=== PATIENT | male | born 1955 | race Caucasian/White ===

== ENCOUNTER 2016-12-16 05:53 | Inpatient (IN) | payer BC, OTHER ==
[~2016-12-16] VITALS: Ht 172.7 cm; Wt 70.7 kg
[2016-12-16] MEDS ORDERED: ALBUTEROL SULF 2.5 MG/0.5ML(0.5%) NEB SOLN HHN STA (07:31)
[2016-12-16 07:36] LABS: Basophils # (auto) 0.1 uL; Basophils % (auto) 1.4 % (0.0-2.0); DEFINITIVE VIEW TRANSMISSION; Eosinophils # (auto) 0.3 uL; Eosinophils % (auto) 3.9 % (0.0-7.0); Hematocrit 51.9 % (41.0-53.0); Hemoglobin 17.2 g/dL (13.5-17.5); Lymphocytes # (auto) 1.4 uL; Lymphocytes % (auto) 21.3 % (10.0-50.0); Mean Corpuscular Hemoglobin 35.3 pg (28.0-32.0); Mean Corpuscular Hgb Conc. 33.2 g/dL (32.0-36.0); Mean Corpuscular Volume 106.2 fL (80.0-100.0); Mean Platelet Volume 6.8 fL (7.4-10.4); Monocytes # (auto) 0.4 uL; Neutrophils # (auto) 4.5 uL; Neutrophils % (auto) 67.4 % (37.0-80.0); Platelet Count (auto) 255 10^3/uL (140-450); Red Cell Distribution Width 15.3 % (11.6-16.0); White Blood Cell 6.6 10^3/uL (4.4-10.8)
[2016-12-16 07:40] LABS: INR 1.04 (0.9-1.15); Partial Thromboplastin Time 30.6 sec (22.64-33.71); Prothrombin Time 10.7 sec (9.37-12.3)
[2016-12-16] MEDS ORDERED: LEVOFLOXACIN 750MG 150 ML IV ONE (07:45)
[2016-12-16] MEDS ORDERED: IPRATROPIUM BROM 0.5 MG/2.5ML INH SOL NEB ONE (07:45)
[2016-12-16] MEDS ORDERED: methylPREDNISolone SOD SUCC 125 MG/2 ML VL IV ONE (07:45)
[2016-12-16 07:47] LABS: Macrocytosis Moderate; Platelet Estimate Adequate
[2016-12-16 07:56] LABS: Urine RBC None Seen /hpf (0 - 3); Urine Squamous Epithelial Cell None Seen /hpf (<5)
[2016-12-16 08:36] LABS: B-Type Natriuretic Peptide 35.02 pg/mL (0-100)
[2016-12-16 08:41] LABS: Urine Bilirubin Negative (Negative); Urine Blood Negative /uL (Negative); Urine Color Yellow (Yellow); Urine Fine Granular Cast Few /lpf; Urine Glucose Normal (Normal); Urine Ketone Negative (Negative); Urine Urobilinogen Normal (Negative); Urine pH 6.5 (5.0-8.0)
[2016-12-16 08:42] LABS: Urine Nitrite Negative (Negative)
[2016-12-16 09:30] LABS: Albumin 3.1 g/dL (3.4-5.0); Alkaline Phosphatase 103 U/L (45-117); Anion Gap 9 (5-15); Aspartate Aminotransferase 40 U/L (15-37); BUN/Creatinine Ratio 11.1; Bilirubin, Total 0.7 mg/dL (0.2-1.0); Blood Urea Nitrogen 5 mg/dL (7-18); Calcium 8.4 mg/dL (8.5-10.1); Carbon Dioxide 32 mmol/L (21-32); Chloride 100 mmol/L (98-107); GFR African American 246 mL/min; GFR Non-African American 204 mL/min; Glucose 87 mg/dL (74-106); Potassium 3.7 mmol/L (3.5-5.1); Sodium 141 mmol/L (136-145); Total Protein 7.2 g/dL (6.4-8.2)
[2016-12-16] MEDS ORDERED: IOHEXOL 350 MG/ML 100ML IJ ONE (10:39)
[2016-12-16] MEDS ORDERED: THIAMINE HCL 100 MG/ML 2ML VIAL IV ONE (13:30)
[2016-12-16] MEDS ORDERED: cefTRIAXone 1GM/50ML D5W 50 ML IV ONE (13:30)
[2016-12-16] MEDS ORDERED: AZITHROMYCIN 500MG/D5W 250ML 250 ML IV ONE (13:30)
[2016-12-16] MEDS ORDERED: ACETAMINOPHEN 500 MG TAB PO PRN (13:30)
[2016-12-16] MEDS: SODIUM CHLORIDE 0.9% 1,000 ML IV SCH ×2 (13:52→23:30)
[2016-12-16] MEDS: ALBUTEROL SULF 2.5 MG/0.5ML(0.5%) NEB SOLN NEB SCH ×2 (14:00→19:29)
[2016-12-16] MEDS: IPRATROPIUM BROM 0.5 MG/2.5ML INH SOL NEB SCH ×2 (14:00→19:29)
[2016-12-16 15:10] VITALS: BP 124/71
[2016-12-16 16:46] VITALS: BP 124/65
[2016-12-16 20:36] VITALS: BP 124/65
[2016-12-16 21:49] VITALS: BP 123/58
[2016-12-17 05:25] VITALS: BP 123/76
[2016-12-17] MEDS: ALBUTEROL SULF 2.5 MG/0.5ML(0.5%) NEB SOLN NEB SCH ×4 (05:35→19:33)
[2016-12-17] MEDS: IPRATROPIUM BROM 0.5 MG/2.5ML INH SOL NEB SCH ×4 (05:35→19:33)
[2016-12-17 05:38] LABS: DEFINITIVE VIEW TRANSMISSION; Hematocrit 49.2 % (41.0-53.0); Hemoglobin 16.4 g/dL (13.5-17.5); Mean Corpuscular Hgb Conc. 33.3 g/dL (32.0-36.0); Mean Corpuscular Volume 105.2 fL (80.0-100.0); Platelet Count (auto) 261 10^3/uL (140-450); Red Cell Distribution Width 15.1 % (11.6-16.0); SUSPECT VIEW TRANSMISSION; White Blood Cell 18.5 10^3/uL (4.4-10.8)
[2016-12-17 06:00] LABS: Metamyelocytes % 0; Myelocytes % 0; Promyelocytes % 0; Reactive Lymphocytes 0
[2016-12-17 06:12] LABS: Potassium 3.9 mmol/L (3.5-5.1)
[2016-12-17 06:21] LABS: BUN/Creatinine Ratio 10.9; Calcium 8.3 mg/dL (8.5-10.1)
[2016-12-17 06:49] LABS: Hypersegmented Neutrophils Present; Macrocytosis Moderate; Platelet Estimate Adequate
[2016-12-17] MEDS: THIAMINE HCL 100 MG/ML 2ML VIAL IV SCH (08:23)
[2016-12-17] MEDS: cefTRIAXone 1GM/50ML D5W 50 ML IV SCH (08:23)
[2016-12-17 09:00] VITALS: BP 105/67
[2016-12-17] MEDS: SODIUM CHLORIDE 0.9% 1,000 ML IV SCH ×2 (10:04→20:43)
[2016-12-17] MEDS: AZITHROMYCIN 500MG/D5W 250ML 250 ML IV SCH (10:05)
[2016-12-17 13:00] VITALS: BP 102/71
[2016-12-17 17:00] VITALS: BP 99/67
[2016-12-17 20:00] VITALS: BP 127/78
[2016-12-17 22:00] VITALS: BP 127/78
[2016-12-18 05:00] VITALS: BP 133/89
[2016-12-18 05:32] LABS: Basophils # (auto) 0 uL; Basophils % (auto) 0.3 % (0.0-2.0); DEFINITIVE VIEW TRANSMISSION; Eosinophils # (auto) 0.1 uL; Eosinophils % (auto) 0.6 % (0.0-7.0); Hemoglobin 15.4 g/dL (13.5-17.5); Monocytes # (auto) 0.4 uL; Neutrophils # (auto) 7.6 uL; White Blood Cell 10.1 10^3/uL (4.4-10.8)
[2016-12-18] MEDS: SODIUM CHLORIDE 0.9% 1,000 ML IV SCH (05:33)
[2016-12-18 05:43] LABS: Hematocrit 46.3 % (41.0-53.0); Lymphocytes # (auto) 1.9 uL; Lymphocytes % (auto) 18.9 % (10.0-50.0); Mean Corpuscular Hemoglobin 35.1 pg (28.0-32.0); Mean Corpuscular Hgb Conc. 33.3 g/dL (32.0-36.0); Mean Corpuscular Volume 105.3 fL (80.0-100.0); Mean Platelet Volume 6.8 fL (7.4-10.4); Monocytes % (auto) 4.4 % (0.0-12.0); Neutrophils % (auto) 75.8 % (37.0-80.0); Platelet Count (auto) 257 10^3/uL (140-450); Red Cell Distribution Width 15.6 % (11.6-16.0)
[2016-12-18] MEDS: IPRATROPIUM BROM 0.5 MG/2.5ML INH SOL NEB SCH ×2 (06:55→10:03)
[2016-12-18] MEDS: ALBUTEROL SULF 2.5 MG/0.5ML(0.5%) NEB SOLN NEB SCH ×2 (06:55→10:03)
[2016-12-18 08:00] VITALS: BP 120/70
[2016-12-18 09:00] VITALS: BP 120/70
[2016-12-18] MEDS: cefTRIAXone 1GM/50ML D5W 50 ML IV SCH (09:27)
[2016-12-18] MEDS: AZITHROMYCIN 500MG/D5W 250ML 250 ML IV SCH (10:00)
[2016-12-18] MEDS: THIAMINE HCL 100 MG/ML 2ML VIAL IV SCH (10:28)
[2016-12-18 13:00] VITALS: BP 130/89
[2016-12-18 13:05] VITALS: BP 102/61
[2016-12-18 13:17] VITALS: BP 120/70
== END 2016-12-18 14:20 | disposition home or self-care (01) | DRG 871 ==
LOC: ER 06:02 → OVERFLOW 06:03 → EAST 14:26 → WEST WING 15:54
PROVIDERS: ADMIT Internal Medicine; ATTEND Internal Medicine
DX: A41.9 Sepsis, unspecified organism (principal); J18.9 Pneumonia, unspecified organism; J44.0 Chronic obstructive pulmonary disease with (acute) lower respiratory infection; J44.1 Chronic obstructive pulmonary disease with (acute) exacerbation; F10.10 Alcohol abuse, uncomplicated; F17.210 Nicotine dependence, cigarettes, uncomplicated; Z71.41 Alcohol abuse counseling and surveillance of alcoholic; Z71.6 Tobacco abuse counseling
CPT/HCPCS: 36415; 71010; 71020; 71275; 80048; 80053; 81001; 83605; 83880; 84443; 84484; 85007; 85025; 85027; 85379; 85610; 85730; 87040; 87400; 93005; 94640; 94644; 96365; 96366; 96367; 96375; 99291; J0696; J1956

== ENCOUNTER → 2019-03-09 | Outpatient (CLI) | payer BC | END | disposition home or self-care (01) | LOC: Rad HDHVI 10:58 | PROVIDERS: ATTEND Internal Medicine Cardiovascular Disease | DX: I35.1 Nonrheumatic aortic (valve) insufficiency (principal); J44.9 Chronic obstructive pulmonary disease, unspecified; I51.7 Cardiomegaly | CPT/HCPCS: 93306 ==

== ENCOUNTER → 2019-04-11 | Outpatient (CLI) | payer BC ==
[~2019-04-11] VITALS: Ht 170.2 cm; Wt 67.6 kg
== END | disposition home or self-care (01) ==
LOC: Rad HDHVI 12:47
PROVIDERS: ATTEND Internal Medicine Cardiovascular Disease
DX: Z01.810 Encounter for preprocedural cardiovascular examination (principal); J44.9 Chronic obstructive pulmonary disease, unspecified; M75.101 Unspecified rotator cuff tear or rupture of right shoulder, not specified as traumatic; M12.811 Other specific arthropathies, not elsewhere classified, right shoulder; Z87.01 Personal history of pneumonia (recurrent); Z72.0 Tobacco use
CPT/HCPCS: 71046; 78452; 93005; 96374; 96375; A9500

== ENCOUNTER → 2020-05-31 | Outpatient (CLI) | payer BC ==
[2020-05-31 10:16] LABS: Basophils # (auto) 0.1 10 ^3/uL (0-0.2); Basophils % (auto) 1.1 % (0.0-2.0); Eosinophils # (auto) 0.8 10 ^3/uL (0-0.8); Eosinophils % (auto) 10.8 % (0.0-7.0); Hematocrit 46.5 % (41.0-53.0); Hemoglobin 15.4 g/dL (13.5-17.5); Lymphocytes # (auto) 2.3 10 ^3/uL (0.4-5.4); Lymphocytes % (auto) 32.4 % (10.0-50.0); Mean Corpuscular Hemoglobin 30.8 pg (28.0-32.0); Mean Corpuscular Hgb Conc. 33.2 g/dL (32.0-36.0); Mean Corpuscular Volume 92.9 fL (80.0-100.0); Monocytes # (auto) 0.5 10 ^3/uL (0-1.3); Monocytes % (auto) 6.5 % (0.0-12.0); Neutrophils # (auto) 3.4 10 ^3/uL (1.6-8.6); Neutrophils % (auto) 49.2 % (37.0-80.0); Nucleated Red Blood Cells % 0.1 %; Platelet Count (auto) 345 10^3/uL (140-450); Red Blood Cells 5.01 10^6/uL (4.5-5.90); Red Cell Distribution Width 14.1 % (11.8-14.3)
[2020-05-31 10:35] LABS: Urine Bacteria NONE SEEN /hpf (None Seen); Urine Blood Negative /uL (Negative); Urine Mucus FEW (None Seen); Urine Specific Gravity 1.021 (1.001-1.035); Urine WBC 1 /hpf (0 - 3)
[2020-05-31 11:12] LABS: Calcium 9.3 mg/dL (8.5-10.1); Potassium 4.7 mmol/L (3.5-5.1)
[2020-05-31 11:17] LABS: BUN/Creatinine Ratio 15.8; Bilirubin, Total 0.5 mg/dL (0.2-1.0); Total Protein 7.4 g/dL (6.4-8.2)
== END | disposition home or self-care (01) ==
LOC: LAB 09:55
DX: Z00.00 Encounter for general adult medical examination without abnormal findings (principal); E55.9 Vitamin D deficiency, unspecified; R06.02 Shortness of breath
CPT/HCPCS: 36415; 80053; 80061; 81001; 82306; 83036; 83880; 84443; 85025

== ENCOUNTER → 2020-07-09 | Outpatient (CLI) | payer BC ==
[2020-07-09 11:39] LABS: Basophils # (auto) 0.1 10 ^3/uL (0-0.2); Basophils % (auto) 1.1 % (0.0-2.0); Eosinophils # (auto) 0.5 10 ^3/uL (0-0.8); Eosinophils % (auto) 6.7 % (0.0-7.0); Hematocrit 45.8 % (41.0-53.0); Hemoglobin 14.8 g/dL (13.5-17.5); Lymphocytes # (auto) 2.3 10 ^3/uL (0.4-5.4); Lymphocytes % (auto) 30.9 % (10.0-50.0); Mean Corpuscular Hemoglobin 30.4 pg (28.0-32.0); Mean Corpuscular Hgb Conc. 32.3 g/dL (32.0-36.0); Mean Corpuscular Volume 94.2 fL (80.0-100.0); Monocytes # (auto) 0.4 10 ^3/uL (0-1.3); Neutrophils # (auto) 4.1 10 ^3/uL (1.6-8.6); Neutrophils % (auto) 55.3 % (37.0-80.0); Platelet Count (auto) 327 10^3/uL (140-450); Red Blood Cells 4.86 10^6/uL (4.5-5.90); Red Cell Distribution Width 14.3 % (11.8-14.3); White Blood Cell 7.3 10^3/uL (4.4-10.8)
== END | disposition home or self-care (01) ==
LOC: LAB 11:22
DX: M25.511 Pain in right shoulder (principal); Z96.611 Presence of right artificial shoulder joint
CPT/HCPCS: 36415; 85025; 85652; 86141

== ENCOUNTER → 2020-09-14 | Outpatient (CLI) | payer BC | END | disposition home or self-care (01) | LOC: XY 07:24 | PROVIDERS: ATTEND Internal Medicine | DX: M25.511 Pain in right shoulder (principal); Z96.611 Presence of right artificial shoulder joint | CPT/HCPCS: 78315; A9503 ==

== ENCOUNTER 2020-12-30 11:05 | Emergency (ER) | payer BC ==
[~2020-12-30] VITALS: Ht 172.7 cm; Wt 74.8 kg
[2020-12-30 11:26] VITALS: BP 180/90
== END 2020-12-30 11:45 | disposition home or self-care (01) ==
LOC: ER 11:05
DX: B02.9 Zoster without complications (principal)